=== PATIENT | male | born 1950 | race African-American/Black ===

== ENCOUNTER 2017-11-19 02:37 | Emergency (ER) | payer BC, MEDICARE, MEDICAID ==
[~2017-11-19] VITALS: Ht 188 cm; Wt 62.0 kg
[~2017-11-19 02:37] MED LIST: ACIT10CA3 PO; ACLI400A2 IH; AMLO10TA80 PO; ATOR40TA70 PO; CELE100C PO; DETLA2 PO; GABA300S PO; LISI10TA5 PO; MELO-106 PO; OXYC30TA86 PO; TAMS0.4C31 PO
[2017-11-19] MEDS ORDERED: ALBUTEROL (0.083%) 2.5MG/3ML NEB HHN STA (02:39)
[2017-11-19] MEDS ORDERED: METHYLPREDNISOLONE SOD SUCC 125 MG/2 ML VIAL IV STA (02:39)
[2017-11-19] MEDS ORDERED: IPRATROPIUM BROMIDE (0.02%) 0.5MG/2.5ML NEB HHN STA (02:39)
[2017-11-19 03:12] LABS: BG BASE EXCESS -4.1 mmol/L (-2.0-2.0); BG CARBOXYHEMOGLOBIN 1.8 % (0.5-1.5); BG DEOXYHEMOGLOBIN 3.1 % (0.0-5.0); BG FRACTION INSPIRED OXYGEN 60; BG HCO3 ACT 19.9 mmol/L (22.0-26.0); BG METHEMOGLOBIN 0.2 % (0.0-1.5); BG OXYGEN SATURATION 96.8 % (92.0-98.5); BG OXYHEMOGLOBIN 94.9 % (94.0-97.0); BG PCO2 33.6 mmHg (35.0-45.0); BG PH 7.391 (7.350-7.450); BG PO2 93.6 mmHg (75.0-100.0); BG SAMPLE SITE RIGHT RADIAL; BG TOTAL HEMOGLOBIN 14.5 g/dL (12.0-18.0)
[2017-11-19 03:27] LABS: BASOPHILS % 0.7 % (0.0-2.0); EOSINOPHILS % 7.3 % (0.0-5.0); HEMOGLOBIN. 14.3 g/dL (14.0-18.0); LYMPHOCYTES % 26.9 % (20.0-50.0); MEAN CORPUSCULAR HEMOGLOBIN 30.2 pg (28.0-32.0); MEAN CORPUSCULAR VOLUME 90.5 fL (80.0-94.0); MONOCYTES % 1.6 % (2.0-8.0); NEUTROPHILS % 63.5 % (40.0-76.0); PLATELET 202 x1000/uL (130-400); RED BLOOD CELL COUNT 4.75 mill/uL (4.7-6.1)
[2017-11-19 03:35] LABS: CHLORIDE 106 mEq/L (98-107); INR 1.1; PROTHROMBIN TIME 11.3 sec (9.4-11.6)
[2017-11-19 05:40] VITALS: BP 124/63
== END 2017-11-19 06:19 | disposition home or self-care (01) ==
LOC: ER 02:37
DX: J44.1 Chronic obstructive pulmonary disease with (acute) exacerbation (principal); R03.0 Elevated blood-pressure reading, without diagnosis of hypertension; Z79.899 Other long term (current) drug therapy
CPT/HCPCS: 36415; 36600; 71045; 80053; 82375; 82805; 83880; 84484; 85025; 85610; 93005; 94640; 96374; 99285; J2930; J7611; Z7610

== ENCOUNTER 2020-10-16 06:26 | Emergency (ER) | payer BC, MEDICARE, MEDICAID ==
[~2020-10-16] VITALS: Ht 188 cm; Wt 64.0 kg
[~2020-10-16 06:26] MED LIST changes: -ACLI400A2 IH; +ACLI400A3 IH; +LISI10TA26 PO; -LISI10TA5 PO
[2020-10-16 06:35] VITALS: BP 154/81
[2020-10-16] MEDS ORDERED: ALBUTEROL (0.083%) 2.5MG/3ML NEB HHN STA (07:22)
[2020-10-16] MEDS ORDERED: IPRATROPIUM BROMIDE (0.02%) 0.5MG/2.5ML NEB HHN STA (07:22)
[2020-10-16 08:09] LABS: BASOPHILS % 0.7 % (0.0-2.0); EOSINOPHILS % 8.9 % (0.0-5.0); HEMATOCRIT. 43.9 % (42.0-52.0); HEMOGLOBIN. 14.5 g/dL (14.0-18.0); LYMPHOCYTES % 27.5 % (20.0-50.0); MEAN CORPUSCULAR HEMOGLOBIN 30.1 pg (28.0-32.0); MEAN CORPUSCULAR VOLUME 90.7 fL (80.0-94.0); MONOCYTES % 9.4 % (2.0-8.0); NEUTROPHILS % 53.5 % (40.0-76.0); PLATELET 238 x1000/uL (130-400); RED BLOOD CELL COUNT 4.84 mill/uL (4.7-6.1); RED CELL DISTRIBUTION WIDTH 12.6 % (11.6-14.6)
[2020-10-16 08:16] LABS: CHLORIDE 108 mEq/L (98-107)
[2020-10-16] MEDS ORDERED: FLUT12AE3 INH (08:48)
[2020-10-16] MEDS ORDERED: ALBU6.7H9 INH (08:50)
[2020-10-16] MEDS ORDERED: MED4 MT (08:50)
[2020-10-16] MEDS ORDERED: DOXY100C2 MT (08:50)
== END 2020-10-16 09:05 | disposition home or self-care (01) ==
LOC: ER 06:26
DX: J44.1 Chronic obstructive pulmonary disease with (acute) exacerbation (principal); I10 Essential (primary) hypertension; Z79.899 Other long term (current) drug therapy; Z98.890 Other specified postprocedural states
CPT/HCPCS: 36415; 71045; 80053; 83880; 84484; 85025; 93005; 94640; 99285; Z7610

== ENCOUNTER 2021-12-05 07:31 | Inpatient (IN) | payer BC, MEDICARE, MEDICAID ==
[~2021-12-05] VITALS: Ht 188 cm; Wt 65.2 kg
[~2021-12-05 07:31] MED LIST changes: +ACLI400A2 IH; -ACLI400A3 IH; +ALBU6.7H9 INH; +DOXY100C5 MT; +FLUT12AE3 INH; +MED4 MT
[2021-12-05] MEDS ORDERED: IPRATROPIUM BROMIDE (0.02%) 0.5MG/2.5ML NEB HHN STA (08:01)
[2021-12-05] MEDS ORDERED: METHYLPREDNISOLONE SOD SUCC 125 MG/2 ML VIAL IV STA (08:01)
[2021-12-05] MEDS ORDERED: MAGNESIUM 2 G PREMIX 50 ML IV ONE (08:15)
[2021-12-05 08:20] LABS: BASOPHILS % 1.2 % (0.0-2.0); EOSINOPHILS % 6.6 % (0.0-5.0); HEMATOCRIT. 45.2 % (42.0-52.0); HEMOGLOBIN. 15.1 g/dL (14.0-18.0); LYMPHOCYTES % 34.3 % (20.0-50.0); MEAN CORPUSCULAR HEMOGLOBIN 29.8 pg (28.0-32.0); MEAN CORPUSCULAR VOLUME 89.5 fL (80.0-94.0); MEAN PLATELET VOLUME 8.4 fl (7.4-10.4); MONOCYTES % 9.9 % (2.0-8.0); PLATELET 269 x1000/uL (130-400); RED BLOOD CELL COUNT 5.05 mill/uL (4.7-6.1); RED CELL DISTRIBUTION WIDTH 12.4 % (11.6-14.6)
[2021-12-05 08:23] LABS: CHLORIDE 107 mEq/L (98-107)
[2021-12-05] MEDS: ALBUTEROL (0.083%) 2.5MG/3ML NEB HHN SCH ×2 (08:56→08:57)
[2021-12-05] MEDS ORDERED: HYDROCODONE/ACETAMINOPHEN 5/325MG TABLET PO PRN (13:00)
[2021-12-05] MEDS ORDERED: CLONIDINE 0.1MG TABLET PO PRN (13:00)
[2021-12-05] MEDS ORDERED: ONDANSETRON HCL 4MG/2ML INJ IV PRN (13:00)
[2021-12-05] MEDS ORDERED: MAGNESIUM/ALUMINUM HYDROXIDE/SIMETHICONE 30ML UDC PO PRN (13:00)
[2021-12-05] MEDS ORDERED: ACETAMINOPHEN 325MG TABLET PO PRN ×2 (13:00)
[2021-12-05] MEDS ORDERED: IPRATROPIUM/ALBUTEROL 0.5-3(2.5)MG/3ML NEB NEB PRN (13:00)
[2021-12-05] MEDS ORDERED: NALOXONE HCL 0.4MG/ML VIAL IV PRN (13:30)
[2021-12-05] MEDS: ENOXAPARIN 40MG/0.4ML SYR SUBCUT SCH (14:44)
[2021-12-05 18:00] VITALS: BP 153/90
[2021-12-05 18:29] VITALS: BP 153/90
[2021-12-05 20:00] VITALS: BP 141/70
[2021-12-05] MEDS: IPRATROPIUM/ALBUTEROL 0.5-3(2.5)MG/3ML NEB NEB SCH (20:46)
[2021-12-06] VITALS: BP 108/57
[2021-12-06] MEDS: IPRATROPIUM/ALBUTEROL 0.5-3(2.5)MG/3ML NEB NEB SCH ×4 (00:18→12:43)
[2021-12-06 04:00] VITALS: BP 122/69
[2021-12-06 06:32] LABS: HEMATOCRIT. 42.7 % (42.0-52.0); HEMOGLOBIN. 14.4 g/dL (14.0-18.0); MEAN CORPUSCULAR HEMOGLOBIN 29.8 pg (28.0-32.0); MEAN CORPUSCULAR VOLUME 88.4 fL (80.0-94.0); MEAN PLATELET VOLUME 8.4 fl (7.4-10.4); PLATELET 254 x1000/uL (130-400); RED BLOOD CELL COUNT 4.82 mill/uL (4.7-6.1); RED CELL DISTRIBUTION WIDTH 12.7 % (11.6-14.6)
[2021-12-06 07:40] LABS: CHLORIDE 106 mEq/L (98-107); PHOSPHORUS 3.1 mg/dL (2.5-4.9)
[2021-12-06 08:00] VITALS: BP 151/80
[2021-12-06] MEDS ORDERED: PREDNISONE 20MG TABLET PO SCH (09:00)
[2021-12-06] MEDS ORDERED: AMLODIPINE 10MG TABLET PO SCH (09:00)
[2021-12-06] MEDS ORDERED: TAMSULOSIN HCL 0.4MG SR CAPSULE PO SCH (09:00)
[2021-12-06 12:00] VITALS: BP 150/98
[2021-12-06] MEDS ORDERED: P20 PO (14:12)
[2021-12-06] MEDS: ENOXAPARIN 40MG/0.4ML SYR SUBCUT SCH (15:16)
[2021-12-06 15:28] VITALS: BP 150/98
[2021-12-06] MEDS ORDERED: LISINOPRIL 10MG TABLET PO SCH (21:00)
[2021-12-06] MEDS ORDERED: ATORVASTATIN CALCIUM 40MG TABLET PO SCH (21:00)
[2021-12-07 11:54] LABS: PLATELET ESTIMATE NORMAL
== END 2021-12-06 16:30 | disposition home or self-care (01) | DRG 192 ==
LOC: ER 07:31 → SUPCPDRO 12:58 → ENRESERV 15:31 → ER 16:30 → 7WST 18:37
PROVIDERS: ADMIT Internal Medicine; ATTEND Internal Medicine
DX: J44.1 Chronic obstructive pulmonary disease with (acute) exacerbation (principal); I10 Essential (primary) hypertension; Z20.822 Contact with and (suspected) exposure to COVID-19; M19.90 Unspecified osteoarthritis, unspecified site; Z79.899 Other long term (current) drug therapy; Z87.891 Personal history of nicotine dependence
CPT/HCPCS: 36415; 71045; 80048; 80053; 83735; 83880; 84100; 84484; 85025; 87426; 93005; 94640; 94644; 99285; C9803; J1650; J2930; J3475; J7512